=== PATIENT | female | born 1970 | race African-American/Black ===

== ENCOUNTER 2016-06-17 16:16 | Emergency (ER) | payer OTHER, BC ==
[~2016-06-17] VITALS: Ht 180.3 cm; Wt 135.0 kg
[~2016-06-17 16:16] MED LIST: ASPI81TA82 PO; FEXO180 PO
[2016-06-17 16:19] VITALS: BP 124/87; PULSE 102; RESP 18; TEMP 97.9; O2SAT 99
[2016-06-17] MEDS ORDERED: METHOCARBAMOL 500 MG TAB PO ONE (17:45)
[2016-06-17] MEDS ORDERED: IBUPROFEN 600 MG TAB PO ONE (17:45)
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
[2016-06-17] MEDS ORDERED: ROBA750T PO (19:03)
[2016-06-17] MEDS ORDERED: IBUP-232 PO (19:03)
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
== END 2016-06-17 19:32 | disposition home or self-care (01) ==
LOC: NEPB 16:16
DX: S90.01XA Contusion of right ankle, initial encounter (principal); R07.89 Other chest pain; M54.5 Low back pain; I10 Essential (primary) hypertension; E11.9 Type 2 diabetes mellitus without complications; V43.52XA Car driver injured in collision with other type car in traffic accident, initial encounter; Y92.410 Unspecified street and highway as the place of occurrence of the external cause
CPT/HCPCS: 71010; 72100; 73610; 99284

== ENCOUNTER 2017-07-19 15:18 | Emergency (ER) | payer BC ==
[~2017-07-19] VITALS: Ht 180.3 cm; Wt 144.8 kg
[~2017-07-19 15:18] MED LIST changes: +IBUP-232 PO; +ROBA750T PO
[2017-07-19 15:25] VITALS: BP 134/63; PULSE 76; RESP 18; TEMP 98; O2SAT 100
[2017-07-19] MEDS ORDERED: VICT18IN SQ (17:31)
[2017-07-19] MEDS ORDERED: METF500T PO (17:31)
[2017-07-19] MEDS ORDERED: ATEN50TA7 PO (17:31)
[2017-07-19] MEDS ORDERED: ASPI-516 CHEW (17:31)
[2017-07-19] MEDS ORDERED: LEVO-145 PO (17:31)
[2017-07-19] MEDS ORDERED: IBUP1TAB7 PO (17:47)
--- NOTE | 2017-07-19 17:56 | PD ---
HPI Chief Complaint: Musculoskeletal Complaint Time Seen by Provider: 17:32 Travel History International Travel<30 days: No Contact w/Intl Traveler<30days: No Traveled to known affect area: No History of Present Illness HPI 47-year-old female presents to the emergency room for evaluation of 2 separate complaints. First complaint is left medial knee pain for the past 2 weeks. Patient denies trauma or injury. Denies history of the same. States she is on her feet all day at both of her jobs and that may exacerbate her symptoms. Pain is minimal at rest. Worse with range of motion or ambulation. She took ibuprofen one time last night with moderate relief in symptoms. Denies paresthesias. She also reports acute on chronic bilateral Achilles tendon pain that is worse with ambulation. She describes the pain as pulling. Patient has been worked up for DVT for the same and the bilateral Doppler was negative. She has history of hypertension, diabetes, and is on control. PFSH Past Medical History Cardiovascular Problems: Yes (HTN) Diabetes: Yes (METFORMIN) Patient Takes Glucophage: Yes ?: Not Social History Alcohol Use: No Tobacco Use: No Substance Use: No Allergies-Medications (Allergen,Severity, Reaction): Coded Allergies: No Known Allergies (Verified Adverse Reaction, Unknown, 07/19/17) Reported Meds & Prescriptions Reported Meds & Active Scripts Active Ibuprofen 800 Mg Tab 800 Mg PO Q8H PRN Reported Aspirin 81 Mg Chew 81 Mg CHEW DAILY Vienva (Levonorgestrel-Ethinyl Estradiol) 0.1-20 mg-mcg Tab 1 Tab PO DAILY Victoza Inj (Liraglutide Inj) 18 Mg/3 Ml Pen 1.8 Mg SQ DAILY Metformin (Metformin HCl) 500 Mg Tab 500 Mg PO BIDPC Atenolol-Chlorthalidone 50-25 Mg Tab 1 Tab PO DAILY Review of Systems Except as stated in HPI: all other systems reviewed are Neg Physical Exam Narrative GENERAL: Well-nourished, morbidly obese female in no acute distress. Afebrile. Ambulatory without a limp. SKIN: Focused skin assessment warm/dry. No erythema or increased warmth. No ecchymosis. HEAD: Normocephalic. EYES: No scleral icterus. No injection or drainage. NECK: Supple, trachea midline. No JVD or lymphadenopathy. CARDIOVASCULAR: Regular rate and rhythm without murmurs, gallops, or rubs. RESPIRATORY: Breath sounds equal bilaterally. No accessory muscle use. MUSCULOSKELETAL: No cyanosis. 1+ bilateral nonpitting edema. 2+ dorsalis pedis pulses are equal bilaterally. Patient has full range of motion of bilateral lower extremities. There is mild tenderness to palpation of the medial left knee. Data Data Last Documented VS Vital Signs Date Time Temp Pulse Resp B/P (MAP) Pulse Ox O2 Delivery O2 Flow Rate FiO2 07/19/17 15:25 98.0 76 18 134/63 (86) 100 Orders Orders Ketorolac Inj (Toradol Inj) (07/19/17 18:00) [facility] Medical Decision Making Medical Screen Exam Complete: Yes Emergency Medical Condition: Yes Medical Record Reviewed: Yes Differential Diagnosis Sprain, contusion, fracture, dislocation, spasm Narrative Course 47-year-old female presents to the emergency room for evaluation of left medial knee pain for the past 2 weeks. Patient denies trauma or injury. Physical exam reveals very mild tenderness to palpation over the left medial knee. Left lower extremity is neurovascularly intact with 2+ dorsalis pedis pulse. There is no obvious edema, increased warmth, erythema, or ecchymosis. Patient was offered x-ray but declined because she did not want to wait for it. I feel this is reasonable given that her symptoms are likely due to osteoarthritis. She was given Toradol in the emergency room for pain. Discharged with prescription for ibuprofen and Eliu wrap. Told to follow-up with her primary care physician or return for worsening symptoms. She understands and agrees to plan. Diagnosis Primary Impression: Osteoarthritis of left knee Qualified Codes: M17.12 - Unilateral primary osteoarthritis, left knee Referrals: Primary Care Physician Additional Instructions: Rest and drink plenty of fluids. Eliu wrap as needed for pain. Take ibuprofen with food as directed, as needed for pain. Apply ice to the affected area for 20 minutes at a time, as needed for pain and swelling. Follow-up with a primary care physician. Return to the emergency room for worsening symptoms. Med/Other Pt SpecificInfo: Prescription(s) given Scripts Ibuprofen (Ibuprofen) 800 Mg Tab 800 MG PO Q8H Y for Pain/Inflammation, #21 TAB 0 Refills Prov: Risa Aquino DO 07/19/17 Disposition: 01 DISCHARGE HOME Condition: Stable Delma Massey Jul 19, 2017 17:56
[2017-07-19] MEDS ORDERED: KETOROLAC TROMETHAMINE 60 MG/2 ML (IM) VIAL IM ONE (18:00)
== END 2017-07-19 18:08 | disposition home or self-care (01) ==
LOC: PHED 15:18 → PHEFT 18:08
DX: M17.12 Unilateral primary osteoarthritis, left knee (principal); E66.01 Morbid (severe) obesity due to excess calories; I10 Essential (primary) hypertension; E11.9 Type 2 diabetes mellitus without complications; Z79.82 Long term (current) use of aspirin; Z79.899 Other long term (current) drug therapy
CPT/HCPCS: 96372; 99283; J1885

== ENCOUNTER 2017-07-31 16:02 | Emergency (ER) | payer BC ==
[~2017-07-31] VITALS: Ht 180.3 cm; Wt 142.2 kg
[~2017-07-31 16:02] MED LIST changes: +ASPI-516 CHEW; -ASPI81TA82 PO; +ATEN50TA7 PO; -FEXO180 PO; -IBUP-232 PO; +IBUP1TAB7 PO; +LEVO-145 PO; +METF500T PO; -ROBA750T PO; +VICT18IN SQ
[2017-07-31 16:07] VITALS: BP 138/75; PULSE 72; RESP 16; TEMP 98.5; O2SAT 98
--- NOTE | 2017-07-31 17:43 | RADRPT ---
EXAM DATE/TIME: 07/31/2017 17:21 [facility] COMPARISON: No previous studies available for comparison. INDICATIONS : Left medial knee pain. MEDICAL HISTORY : Hypertension. Diabetes mellitus type II. SURGICAL HISTORY : None. ENCOUNTER: Initial ACUITY: 2 weeks PAIN SCORE: 7/10 LOCATION: Left knee FINDINGS: Minimal loss of articular cartilage medial compartment. Anatomic alignment. No fracture. No joint effusion CONCLUSION: Loss of articular cartilage medial compartment no fracture Darin Chaparro MD FACR on July 31, 2017 at 17:40 Board Certified Radiologist. This report was verified electronically.
[2017-07-31] MEDS ORDERED: AZIT250T3 PO (17:53)
[2017-07-31] MEDS ORDERED: KETO10 PO (17:53)
[2017-07-31] MEDS ORDERED: BENZ100 PO (17:53)
--- NOTE | 2017-07-31 17:54 | PD ---
HPI Chief Complaint: Cold / Flu Symptoms Time Seen by Provider: 17:10 Travel History International Travel<30 days: No Contact w/Intl Traveler<30days: No Traveled to known affect area: No History of Present Illness HPI This is a 47-year-old female here with 2 complaints. She is reporting nontraumatic left knee pain for the last 2 weeks. She was seen and diagnosed with osteoarthritis. She was prescribed ibuprofen but reports the pain persists. She denies altered sensation of the extremity. No swelling of the leg. No warmth or erythema of the joint. She reports pain in the knee is worse with weightbearing and flexion and relieved with rest. Her second complaint is productive cough 5 days. She reports colored sputum production. Denies chest pain or shortness of breath. Symptom severity is moderate. No aggravating or alleviating factors. PFSH Past Medical History Hx Anticoagulant Therapy: Yes (BABY ASA DAILY) Cardiovascular Problems: Yes (HTN) Diabetes: Yes Patient Takes Glucophage: Yes Diminished Hearing: No Tetanus Vaccination: Unknown ?: Not Social History Alcohol Use: No Tobacco Use: No Substance Use: No Allergies-Medications (Allergen,Severity, Reaction): Coded Allergies: No Known Allergies (Verified Adverse Reaction, Unknown, 07/31/17) Reported Meds & Prescriptions Reported Meds & Active Scripts Active Reported Vienva (Levonorgestrel-Ethinyl Estradiol) 0.1-20 mg-mcg Tab 1 Tab PO DAILY Victoza Inj (Liraglutide Inj) 18 Mg/3 Ml Pen 1.8 Mg SQ DAILY Metformin (Metformin HCl) 500 Mg Tab 500 Mg PO BIDPC Atenolol-Chlorthalidone 50-25 Mg Tab 1 Tab PO BID Aspirin 81 Mg Chew 81 Mg CHEW DAILY Review of Systems Except as stated in HPI: all other systems reviewed are Neg General / Constitutional: No: Fever Eyes: No: Visual changes HENT: No: Headaches Cardiovascular: No: Chest Pain or Discomfort Respiratory: Positive: Cough, No: Shortness of Breath Gastrointestinal: No: Abdominal Pain Genitourinary: No: Dysuria Physical Exam Narrative GENERAL: Alert and well-appearing 47-year-old female SKIN: Warm and dry. HEAD: Normocephalic. EYES: No injection or drainage. ENT: No TM erythema. Clear nasal discharge. Mild pharyngeal erythema without tonsillar hypertrophy or exudate. Uvula is midline. Airways patent. NECK: Supple, trachea midline. CARDIOVASCULAR: Regular rate and rhythm without murmurs, gallops, or rubs. RESPIRATORY: Breath sounds equal bilaterally. No accessory muscle use. Rhonchorous cough GASTROINTESTINAL: Abdomen soft, non-tender, nondistended. MUSCULOSKELETAL: No cyanosis, or edema. Left lower extremity: +TTP medial aspect of the knee. Small joint effusion. No warmth or erythema. No posterior knee tenderness. No calf tenderness. She is able to flex and extend the knee. 2+ distal pulses. Normal sensation. Brisk cap refill. BACK: Nontender without obvious deformity. No CVA tenderness. Data Data Last Documented VS Vital Signs Date Time Temp Pulse Resp B/P (MAP) Pulse Ox O2 Delivery O2 Flow Rate FiO2 07/31/17 17:10 18 98 Room Air 07/31/17 16:07 98.5 72 138/75 (96) Orders Orders Knee, Complete (4vws) (07/31/17 ) [facility] Medical Decision Making Medical Screen Exam Complete: Yes Emergency Medical Condition: Yes Differential Diagnosis Bronchitis, pneumonia, osteoarthritis, medial collateral ligament injury Narrative Course 47-year-old female here with productive cough and colored sputum. She is also having nontraumatic anterior left knee pain. She is nontoxic appearing. Vital signs are stable. X-rays reveal loss of articular cartilage medial compartment without fracture. She will be referred to with her for follow-up. She will also be treated for bronchitis Diagnosis Primary Impression: Knee pain Qualified Codes: M25.562 - Pain in left knee Additional Impression: Bronchitis Referrals: Fuad Joseph Jr., MD Orthopedist Primary Care Physician Additional Instructions: Medication as directed. Call to schedule follow-up appointment with orthopedic doctor. Scripts Ketorolac (Ketorolac) 10 Mg Tab 10 MG PO Q6HR Y for PAIN, #15 TAB 0 Refills Prov: Cira Augustin CARE MANAGEMENT ASSOCIATE 07/31/17 Benzonatate (Tessalon Perles) 100 Mg Cap 200 MG PO TID Y for COUGH, #12 CAP 0 Refills Prov: Cira Augustin CARE MANAGEMENT ASSOCIATE 07/31/17 Azithromycin (Azithromycin) 250 Mg Tab 250 MG PO DIRECTED for Infection, #6 TAB 0 Refills Take 2 tabs (500 mg) on day 1 then 1 tab daily x 4 days. Prov: Cira Augustin CARE MANAGEMENT ASSOCIATE 07/31/17 Disposition: 01 DISCHARGE HOME Condition: Stable Cira Augustin Jul 31, 2017 17:54
== END 2017-07-31 18:08 | disposition home or self-care (01) ==
LOC: PHEFT 16:02
DX: M25.562 Pain in left knee (principal); J40 Bronchitis, not specified as acute or chronic; I10 Essential (primary) hypertension; E11.9 Type 2 diabetes mellitus without complications; Z79.82 Long term (current) use of aspirin; Z79.899 Other long term (current) drug therapy
CPT/HCPCS: 73564; 99283